=== PATIENT | female | born 1965 | race Caucasian/White ===

== ENCOUNTER 2016-09-12 05:37 | Day surgery (SDC) | payer MEDICAID ==
[~2016-09-12 05:37] MED LIST: ABILIFY15 M1 PO; ABILIFY2 M1 PO; ALENDRONATE SOD70 M2 PO; ASCORBIC ACID500 M2 PO; ASPIR 8181 M1 PO; ASPIRIN EC81 MG PO; ATIVAN0.5 M1 PO; ATIVAN1 M2 PO; BACITRACIN1 G1 TOP; BACLOFEN10 M1 PO; BENZTROPINE MESY1 M1 PO; BISACODYL5 M1 PO; CLARITIN10 M8 PO; COLACE100 M1 PO; COZAAR50 M1 PO; CRANBERRY PO; CULTURELLE1 EAC1 PO; CYANOCOBAL1000 MCG/3 IM; DAILY VALUE1 EAC1 PO; DOXYCYCLINE HY100 M3 PO; DURAGESIC1 EAC4 TOP; FAMOTIDINE20 M3 PO; FENTANYL1 EAC5 TOP; FLUCONAZOLE150 M2 PO; FOSAMAX70 M1; FOSAMAX70 M1 PO; HYDROCODON-ACE1 EA16 PO; HYDROXYZINE HCL25 M1 PO; KEFLEX500 M4 PO; KLONOPIN1 M1 PO; KLONOPIN2 M1 PO; LAMICTAL100 M2 PO; LAMICTAL200 M2 PO; LASIX20 M1 PO; LEVAQUIN500 M1 PO; LEVOFLOXACIN750 M1 PO; LEXAPRO20 M2 PO; LOSARTAN POTASS25 M1 PO; LOVENOX30 MG/0.1 SC; LUNESTA3 M1 PO; MACRODANTIN100 M1 PO; MELATONIN3 M4 PO; METHADONE HCL10 M1 PO; METHENAMINE HIPP1 G1 PO; MORPHINE SU4 MG/1 M1 IM; NEURONTIN600 M1 PO; NORCO 5-325 TA1 EACH PO; OXYCODONE HCL10 M2 PO; OXYCODONE HCL5 M1 PO; OXYCONTIN10 M2 PO; OXYCONTIN40 M2 PO; OXYGEN; PEPCID20 M1 PO; PERCOCET 5-3251 EACH PO; POLYETHYLENE GL17 G1 PO; POTASSIUM CHLO10 ME2 PO; PRAVASTATIN SOD10 M1 PO; PRAZOSIN HCL2 M2 PO; PRILOSEC20 M1 PO; PYRIDIUM100 M2 PO; RESTORIL30 M1 PO; ROXICODONE IR PO; ROXICODONE5 M2 PO; SENNA8.6 M3 PO; SEROQUEL300 M1 PO; SULFAMYLON SOL250 M1 TOP; TRIPLE ANTIBIO1 EACH TP; TYLENOL325 M2 PO; VITAMIN C500 M3 PO; VITAMIN D35000 UNI2 PO; XARELTO20 M1 PO; ZANAFLEX4 M3 PO; ZOFRAN4 M2 PO; [UNRECOGNIZED DRUG - REMARK] PO
--- NOTE | 2016-09-12 19:37 | NUR ---
VIRTUAL CARE NOTE: ASSESSMENT DEFERRED. PT. SLEEPING.
[2016-10-07] MEDS ORDERED: NORCO 5-325 TA1 EACH PO (11:00)
[2016-10-07] MEDS ORDERED: RESTORIL30 M1 PO (11:03)
[2016-11-04] MEDS ORDERED: SANTYL30 G1 TD (10:05)
[2016-12-02] MEDS ORDERED: MYRBETRIQ25 M1 PO (10:51)
[2016-12-30] MEDS ORDERED: MYRBETRIQ25 M1 PO (09:53)
[2017-01-20] MEDS ORDERED: DITROPAN XL5 M3 PO (12:06)
[2017-01-20] MEDS ORDERED: PERCOCET 5-3251 EACH PO (12:10)
== END 2016-09-13 13:45 ==
LOC: SRG 05:37 → BURN 05:38 → PACU 09:29 → BURN 10:33 → 5WD 13:00
PROC: 0JR707Z Replacement of Back Subcutaneous Tissue and Fascia with Autologous Tissue Substitute, Open Approach (ICD-10-PCS; principal; 2016-09-12)
PROC: 0HRNXK3 Replacement of Left Foot Skin with Nonautologous Tissue Substitute, Full Thickness, External Approach (ICD-10-PCS; 2016-09-12)
DX: L89.629 Pressure ulcer of left heel, unspecified stage (principal); L89.109 Pressure ulcer of unspecified part of back, unspecified stage; I12.9 Hypertensive chronic kidney disease with stage 1 through stage 4 chronic kidney disease, or unspecified chronic kidney disease; N18.9 Chronic kidney disease, unspecified; E78.00 Pure hypercholesterolemia, unspecified; E78.5 Hyperlipidemia, unspecified; F41.9 Anxiety disorder, unspecified; F32.9 Major depressive disorder, single episode, unspecified; K21.9 Gastro-esophageal reflux disease without esophagitis; J44.9 Chronic obstructive pulmonary disease, unspecified; F17.210 Nicotine dependence, cigarettes, uncomplicated; Z86.718 Personal history of other venous thrombosis and embolism; Z88.8 Allergy status to other drugs, medicaments and biological substances; Z91.041 Radiographic dye allergy status; Z79.899 Other long term (current) drug therapy; Z79.82 Long term (current) use of aspirin; Z98.890 Other specified postprocedural states
CPT/HCPCS: J0171; J0690; J1580; J3370; J7030; J7999; Q4154